=== PATIENT | female | born 1955 | race African-American/Black ===

== ENCOUNTER 2016-10-13 11:20 | Emergency (ER) | payer OTHER ==
[~2016-10-13] VITALS: Ht 172.7 cm; Wt 75.0 kg
[2016-10-13 11:22] VITALS: BP 178/99; PULSE 61; RESP 15; TEMP 97.8; O2SAT 98
[2016-10-13 12:25] LABS: AUTOMATED NEUTROPHIL # 1.7 TH/MM3 (1.8-7.7); BASOPHIL % 0.5 % (0.0-2.0); EOSINOPHIL # 0.1 TH/MM3 (0-0.4); EOSINOPHIL % 1.5 % (0.0-4.0); HEMO FLAGS DIFF FINAL; LYMPH % 55.9 % (9.0-44.0); LYMPHOCYTE # 2.6 TH/MM3 (1.0-4.8); MEAN CELL VOLUME 92.5 FL (80.0-100.0); MEAN CORPUSCULAR HEMOGLOBIN 31.5 PG (27.0-34.0); MONO % 5.9 % (0.0-8.0); NEUT % 36.2 % (16.0-70.0); PLATELET COUNT 115 TH/MM3 (150-450); RED BLOOD COUNT 4.32 MIL/MM3 (4.00-5.30); RED CELL DISTRIBUTION WIDTH 15.5 % (11.6-17.2); WHITE BLOOD COUNT 4.6 TH/MM3 (4.0-11.0)
--- NOTE | 2016-10-13 12:32 | PD ---
HPI Chief Complaint: Numbness/Tingling Time Seen by Provider: 11:32 Travel History International Travel<30 days: No Contact w/Intl Traveler<30days: No Traveled to known affect area: No History of Present Illness HPI Patient is a 61-year-old female with history of HIV who presents the emergency department with complaint of tingling. Patient states that she has a tingling sensation over her low abdomen, this is not painful but she does have a slight pressure associated with it. This radiates throughout the body, goes down into the legs with a tingling type sensation in her feet. This does go into the back , arms. Patient states she is otherwise been well recently, eating and drinking of well, no nausea vomiting or diarrhea. She denies any urinary symptoms. She is taking antiretrovirals, but does not know her last CD4 count. No recent fevers, chills but she does complain of body aches diffusely. She traveled recently to [place] to see her father, but no sick contacts. PFSH Past Medical History Autoimmune Disease: Yes (hiv+) Immune Disorder: Yes (HIV+) Menopausal: Yes Past Surgical History Hysterectomy: Yes Social History Alcohol Use: No Tobacco Use: Yes (pack a day) Substance Use: No Allergies-Medications (Allergen,Severity, Reaction): Coded Allergies: No Known Allergies (Unverified , 10/13/16) Reported Meds & Prescriptions Reported Meds & Active Scripts Active Reported Truvada (Emtricitabine-Tenofovir Disoproxil Fumarate) 200-300 Mg Tab 1 Tab PO DAILY Norvir (Ritonavir) 100 Mg Cap 600 Mg PO DAILY [Rezolsta] DAILY Review of Systems Except as stated in HPI: all other systems reviewed are Neg Physical Exam Narrative GENERAL: Well-appearing female in no acute distress SKIN: Focused skin assessment warm/dry. HEAD: Normocephalic. EYES: No scleral icterus. No injection or drainage. ENT: Mucous membranes pink and moist. NECK: Supple CARDIOVASCULAR: Regular rate and rhythm. No murmur appreciated. RESPIRATORY: No accessory muscle use. Clear to auscultation. Breath sounds equal bilaterally. GASTROINTESTINAL: Abdomen soft, non-tender, nondistended. MUSCULOSKELETAL: No obvious deformities. No edema. Sensation grossly intact. Upper and lower show many reflexes intact. Motor movement normal. NEUROLOGICAL: Awake and alert. Motor grossly within normal limits. Normal speech. PSYCHIATRIC: Appropriate mood and affect; insight and judgment normal. Data Data Last Documented VS Vital Signs Date Time Temp Pulse Resp B/P Pulse Ox O2 Delivery O2 Flow Rate FiO2 10/13/16 11:22 97.8 61 15 178/99 98 Orders Basic Metabolic Panel (Bmp) (10/13/16 11:41) Complete Blood Count With Diff (10/13/16 11:41) Urinalysis - C+S If Indicated (10/13/16 11:41) Cath For Specimen (10/13/16 12:35) Labs Laboratory Tests Test 10/13/16 10/13/16 11:15 12:55 White Blood Count 4.6 TH/MM3 Red Blood Count 4.32 MIL/MM3 Hemoglobin 13.6 GM/DL Hematocrit 40.0 % Mean Corpuscular Volume 92.5 FL Mean Corpuscular Hemoglobin 31.5 PG Mean Corpuscular Hemoglobin 34.0 % Concent Red Cell Distribution Width 15.5 % Platelet Count 115 TH/MM3 Mean Platelet Volume 9.3 FL Neutrophils (%) (Auto) 36.2 % Lymphocytes (%) (Auto) 55.9 % Monocytes (%) (Auto) 5.9 % Eosinophils (%) (Auto) 1.5 % Basophils (%) (Auto) 0.5 % Neutrophils # (Auto) 1.7 TH/MM3 Lymphocytes # (Auto) 2.6 TH/MM3 Monocytes # (Auto) 0.3 TH/MM3 Eosinophils # (Auto) 0.1 TH/MM3 Basophils # (Auto) 0.0 TH/MM3 CBC Comment DIFF FINAL Differential Comment Sodium Level 139 MEQ/L Potassium Level 3.5 MEQ/L Chloride Level 108 MEQ/L Carbon Dioxide Level 23.6 MEQ/L Anion Gap 7 MEQ/L Blood Urea Nitrogen 15 MG/DL Creatinine 0.94 MG/DL Estimat Glomerular Filtration 73 ML/MIN Rate Random Glucose 88 MG/DL Calcium Level 9.0 MG/DL Urine Color YELLOW Urine Turbidity CLEAR Urine pH 7.0 Urine Specific Max 1.010 Urine Protein NEG mg/dL Urine Glucose (UA) NEG mg/dL Urine Ketones NEG mg/dL Urine Occult Blood NEG Urine Nitrite NEG Urine Bilirubin NEG Urine Urobilinogen LESS THAN 2.0 MG/DL Urine Leukocyte Esterase NEG Urine RBC 1 /hpf Urine WBC 1 /hpf Urine Squamous Epithelial 2 /hpf Cells Urine Bacteria RARE /hpf Urine Mucus FEW /lpf Urine Yeast (Budding) RARE Microscopic Urinalysis Comment CULT NOT INDICATED MDM Medical Decision Making Medical Screen Exam Complete: Yes Emergency Medical Condition: Yes Medical Record Reviewed: Yes Differential Diagnosis 61-year-old female HIV positive on antiretrovirals, unknown last CD4 count, with numbness and tingling throughout the entire body seems to emanate from the suprapubic region. Differential includes neuropathy, dehydration, electrolyte abnormality, UTI, medication side effect Narrative Course Unfortunately patient does not know the names of which antiretroviral she is taking, so unknown whether this could be a drug side effect. CBC, BMP, urinalysis obtained. Urinalysis shows bacteria, and knees. We'll treat with fluconazole, Keflex for home. Diagnosis Primary Impression: UTI (urinary tract infection) Qualified Code: N30.00 - Acute cystitis without hematuria Additional Impression: Yeast infection Referrals: Primary Care Physician call for appointment Additional Instructions: Finish antibiotics, yeast medication as prescribed. Follow-up with primary care provider if symptoms persist and return to the ER for the warning signs discussed. Med/Other Pt SpecificInfo: Prescription(s) given Scripts Fluconazole 150 Mg Opb151 Mg PO ONCE #1 TAB Ref 0 Prov:Fannie Dodd MD 10/13/16 Cephalexin (Keflex)500 Mg Vhn567 Mg PO Q8H 7 Days Ref 0 Prov:Fannie Dodd MD 10/13/16 Disposition: 01 DISCHARGE HOME Condition: Stable Fannie Dodd MD Oct 13, 2016 12:32
[2016-10-13] MEDS ORDERED: RITO100 PO (12:33)
[2016-10-13] MEDS ORDERED: EMTR1TAB PO (12:33)
[2016-10-13] MEDS ORDERED: DARUNAVIR (12:33)
[2016-10-13] MEDS ORDERED: COBICISTAT (12:33)
[2016-10-13 12:38] LABS: BICARBONATE 23.6 MEQ/L (21.0-32.0); POTASSIUM 3.5 MEQ/L (3.5-5.1)
[2016-10-13 13:16] LABS: BACTERIA, URINE RARE /hpf; BLOOD, URINE NEG (NEG); GLUCOSE,URINE NEG (NEG); KETONE, URINE NEG (NEG); MUCUS URINE FEW /lpf (OCC); NITRITE,URINE NEG (NEG); SQUAMOUS EPITHELIAL CELL URINE 2 /hpf (0-5); URINE COLOR YELLOW (YELLW/STRAW)
[2016-10-13 13:20] LABS: COMMENT (UR) CULT NOT INDICATED; CULTURE IF INDICATED CULT NOT INDICATED
[2016-10-13] MEDS ORDERED: CEPH-460 PO (13:27)
[2016-10-13] MEDS ORDERED: FLUC150T PO (13:27)
== END 2016-10-13 13:52 | disposition home or self-care (01) ==
LOC: NEPD 11:20
DX: N30.00 Acute cystitis without hematuria (principal); B37.9 Candidiasis, unspecified; Z21 Asymptomatic human immunodeficiency virus [HIV] infection status
CPT/HCPCS: 80048; 81001; 85025; 99284

== ENCOUNTER 2017-06-18 16:55 | Emergency (ER) | payer OTHER ==
[~2017-06-18] VITALS: Ht 172.7 cm; Wt 73.6 kg
[~2017-06-18 16:55] MED LIST: CEPH-460 PO; COBICISTAT; DARUNAVIR; FLUC150T PO; RITO100 PO; TRUV200300 PO
[2017-06-18 17:31] VITALS: BP 130/73; PULSE 73; RESP 20; TEMP 99.7; O2SAT 99
--- NOTE | 2017-06-18 18:25 | RADRPT ---
EXAM DATE/TIME: 06/18/2017 18:06 [facility] COMPARISON: No previous studies available for comparison. INDICATIONS : Fever and cough. MEDICAL HISTORY : None. SURGICAL HISTORY : None. ENCOUNTER: Initial ACUITY: 2 days PAIN SCORE: 0/10 LOCATION: Bilateral chest FINDINGS: PA and lateral views of the chest demonstrate the lungs to be symmetrically aerated without evidence of mass, infiltrate or effusion. The cardiomediastinal contours are unremarkable. There some degener ative change at the lower thoracic and upper lumbar spine. There is minimal anterior wedging of the s uperior aspect of L1. CONCLUSION: No acute cardiopulmonary process. Wan Herman MD on June 18, 2017 at 18:22 Board Certified Radiologist. This report was verified electronically.
[2017-06-18] MEDS ORDERED: [UNRECOGNIZED DRUG - OTHER] (18:44)
[2017-06-18] MEDS ORDERED: ZITHTAB PO (19:21)
--- NOTE | 2017-06-18 19:21 | PD ---
HPI Chief Complaint: Cold / Flu Symptoms Time Seen by Provider: 19:07 Travel History International Travel<30 days: No Contact w/Intl Traveler<30days: No Traveled to known affect area: No History of Present Illness HPI 61-year-old female complains of headache, coughing congestion, body ache and generalized malaise and fever. Patient states that his symptoms started 3 days ago. Patient states that she has mild aching headache. Patient denies any visual change. Patient denies earache or sore throat. Patient states that she has persistent productive cough. Patient states that she has poor appetite but no nausea vomiting. Patient states that she has occasional diarrhea. Patient denies any dysuria frequency. Patient has history of HIV positive and has been seen by physician in [place]. Last blood test done was in March. Patient does not know her CD4 count or viral load. PFSH Past Medical History Autoimmune Disease: Yes (hiv+) Immune Disorder: Yes (HIV+) Menopausal: Yes Past Surgical History Hysterectomy: Yes Social History Alcohol Use: No Tobacco Use: Yes (pack a day) Substance Use: No Allergies-Medications (Allergen,Severity, Reaction): Coded Allergies: No Known Allergies (Unverified , 10/13/16) Reported Meds & Prescriptions Reported Meds & Active Scripts Active Reported [jenava] 600 DAILY Review of Systems General / Constitutional: Positive: Fever Eyes: No: Visual changes HENT: Positive: Headaches Cardiovascular: No: Chest Pain or Discomfort Respiratory: Positive: Cough, No: Shortness of Breath Gastrointestinal: No: Abdominal Pain Genitourinary: No: Dysuria Musculoskeletal: No: Pain Skin: No Rash Neurologic: No: Weakness Psychiatric: No: Depression Endocrine: No: Polydipsia Hematologic/Lymphatic: No: Easy Bruising Physical Exam Narrative GENERAL: Well-nourished, well-developed patient. SKIN: Focused skin assessment warm/dry. HEAD: Normocephalic. EYES: No scleral icterus. No injection or drainage. NECK: Supple, trachea midline. No JVD or lymphadenopathy. CARDIOVASCULAR: Regular rate and rhythm without murmurs, gallops, or rubs. RESPIRATORY: Breath sounds equal bilaterally. No accessory muscle use. GASTROINTESTINAL: Abdomen soft, non-tender, nondistended. MUSCULOSKELETAL: No cyanosis, or edema. BACK: Nontender without obvious deformity. No CVA tenderness. Neurologic exam normal. Data Data Last Documented VS Vital Signs Date Time Temp Pulse Resp B/P (MAP) Pulse Ox O2 Delivery O2 Flow Rate FiO2 06/18/17 17:31 99.7 73 20 130/73 (92) 99 Orders Orders Influenzae A/B Antigen (06/18/17 17:34) Chest, Pa & Lat (06/18/17 ) MDM Medical Decision Making Medical Screen Exam Complete: Yes Emergency Medical Condition: Yes Interpretation(s) 1917 p.m. Chest x-ray shows no acute process. Influenza AB antigen negative. Differential Diagnosis Differential diagnosis including viral syndrome, bronchitis, pneumonia. Narrative Course 61-year-old female with headache, coughing congestion, body ache and fever. Patient has history of HIV positive. Diagnosis Primary Impression: Bronchitis Additional Impression: Viral syndrome Patient Instructions: General Instructions Additional Instructions: Z-Tip as directed. Tylenol for fever aching pain. [id number] cough medication as needed. Follow-up with personal physician. Return if persistent problem or worse. Med/Other Pt SpecificInfo: Prescription(s) given Scripts Azithromycin (Zithromax Z-Tip) 250 Mg Dspk 250 MG PO DIRECTED for Infection, #1 DSPK 0 Refills 500 MG (2 tabs) day 1, then 1 tab days 2-5. Prov: Marv Vail MD 06/18/17 Disposition: 01 DISCHARGE HOME Condition: Stable Marv Vail MD Jun 18, 2017 19:21
== END 2017-06-18 19:36 | disposition home or self-care (01) ==
LOC: NED 16:55 → NEPD 19:36
DX: J20.8 Acute bronchitis due to other specified organisms (principal); R51 Headache; R19.7 Diarrhea, unspecified; F17.200 Nicotine dependence, unspecified, uncomplicated; Z21 Asymptomatic human immunodeficiency virus [HIV] infection status
CPT/HCPCS: 71046; 87804; 99284

== ENCOUNTER 2018-03-08 17:16 | Observation (INO) ==
[2018-03-08 18:16] LABS: Baso % (Auto) 0.5 % (0.0-2.0); Eos # (Auto) 0.1 th/mm3 (0.0-0.4); Eos % (Auto) 1.9 % (0.0-4.0); Hematocrit 34.4 % (35.0-46.0); Hemoglobin 12.3 gm/dL (11.6-15.3); Lymph # (Auto) 2.3 th/mm3 (1.0-4.8); Lymph % (Auto) 45.7 % (9.0-44.0); Mean Corpuscular HGB Conc 35.8 % (32.0-36.0); Mean Corpuscular Volume 92.2 fL (80.0-100.0); Mean Platelet Volume 9.6 fL (7.0-11.0); Mono # (Auto) 0.4 th/mm3 (0.0-0.9); Neut # (Auto) 2.2 th/mm3 (1.8-7.7); Neut % (Auto) 43.9 % (16.0-70.0); Platelet Count 93 th/mm3 (150-450); Red Blood Count 3.74 mil/mm3 (4.00-5.30); Red Cell Distribution Width 15.4 % (11.6-17.2); White Blood Count 5.1 th/mm3 (4.0-11.0)
--- NOTE | 2018-03-08 18:18 | ED ---
HPI General Chief complaint: Respiratory Symptoms Stated complaint: respiratory Time Seen by Provider: 03/08/18 17:46 Source: patient Mode of arrival: ambulatory Limitations: no limitations History of Present Illness HPI narrative: 62-year-old female patient with history of HIV, presents to the ER today because she is having shortness of breath that she states has been going on since November. 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 She reports that it got worse today and that is why she is here. She has been coughing but she has not noticed any phlegm production. She also reports chest discomfort which she states is 8 out of 10. She denies any fevers or other issues. Modifying Factors: None Associated Signs & Symptoms: Several months of worsening shortness of breath, chest discomfort, coughing Risk Factors: HIV Related Data Home Medications Medication Instructions Recorded Confirmed lplcsuy-khb-fhjke-tenof alafen 1 tab PO DAILY 03/08/18 03/08/18 [Genvoya] Allergies Allergy/AdvReac Type Severity Reaction Status Date / Time No Known Allergies Allergy Verified 03/08/18 17:26 Review of Systems ROS: all other systems reviewed are negative [facility] Medical History Medical History HIV positive (Acute) Surgical History Surgical History No history of previous surgery (Acute) Social History Social History Substance History: Past History Second Hand Smoke Exposure: Yes Smoking Status: Current every day smoker Tobacco Type: Cigarettes How Often Do You Have a Drink Containing Alcohol: Never Recent Travel in [place] within the Last 8 Weeks: No Recent Out of Country Travel within the Last 8 Weeks: No Immunization History Tetanus Immunization: >5 Years Exam Narrative Exam Narrative: GENERAL: Well-developed elderly -[place] female patient currently in mild distress. Awake and oriented x3. SKIN: Focused skin assessment warm/dry. HEAD: Atraumatic. Normocephalic. EYES: Pupils equal and round. No scleral icterus. No injection or drainage. ENT: No nasal bleeding or discharge. Mucous membranes pink and moist. NECK: Trachea midline. No JVD. CARDIOVASCULAR: Regular rate and rhythm. No murmur appreciated. RESPIRATORY: Mild accessory muscle use. Clear to auscultation. Breath sounds equal bilaterally. GASTROINTESTINAL: Abdomen soft, non-tender, nondistended. Hepatic and splenic margins not palpable. MUSCULOSKELETAL: No obvious deformities. No clubbing. No cyanosis. No edema. NEUROLOGICAL: Awake and alert. No obvious cranial nerve deficits. Motor grossly within normal limits. Normal speech. PSYCHIATRIC: Appropriate mood and affect; insight and judgment normal. Course Reevaluation(s) Reevaluation #1: juan/emiliana rosen md , can admit to chest pain center Hemodynamically stable with no signs of pneumonia sepsis or acute airway compromise Diagnostic tests reviewed Time: 21:07 Initial Documented Vital Signs Temperature 97.6 F 03/08/18 17:24 Pulse Rate 85 03/08/18 17:24 Respiratory Rate 22 03/08/18 17:24 Blood Pressure 167/108 H 03/08/18 17:24 Pulse Oximetry 100 03/08/18 17:24 Last Documented Vital Signs Temperature 97.6 F 03/08/18 17:24 Pulse Rate 80 03/08/18 17:34 Respiratory Rate 24 03/08/18 17:34 Blood Pressure 171/97 H 03/08/18 17:34 Pulse Oximetry 96 03/08/18 17:57 Sign Out Sign Out Data: Patient Sign Out occurred on 03/08/18 at 18:59. Patient's care was discussed, and care was transferred from Shahid Oneal MD to Deandre Santiago DO. Sign Out Comment: Lab work shows mildly elevated d-dimer, considering her history and complaints, CTA was ordered for the patient for further evaluation. BNP is also pending. Case is discussed with oncoming physician at 7 workup. Disposition based on findings of CTA. Last updated by Shahid Oneal MD at 03/08/18 18:47 Medical Decision Making MDM Narrative Medical Screen Exam Complete: Yes Emergency Medical Condition: Yes Lab Data Result diagrams: 03/08/18 18:05 03/08/18 18:05 Lab Results 03/08/18 03/08/18 03/08/18 Range/Units 18:05 18:05 18:05 WBC 5.1 (4.0-11.0) th/mm3 RBC 3.74 L (4.00-5.30) mil/mm3 Hgb 12.3 (11.6-15.3) gm/dL Hct 34.4 L (35.0-46.0) % MCV 92.2 (80.0-100.0) fL MCH 33.0 (27.0-34.0) pg MCHC 35.8 (32.0-36.0) % RDW 15.4 (11.6-17.2) % Plt Count 93 L (150-450) th/mm3 MPV 9.6 (7.0-11.0) fL Prelim Diff (Auto) Slide review pending Neut % (Auto) 43.9 (16.0-70.0) % Lymph % (Auto) 45.7 H (9.0-44.0) % Burt % (Auto) 8.0 (0.0-8.0) % Eos % (Auto) 1.9 (0.0-4.0) % Baso % (Auto) 0.5 (0.0-2.0) % Neut # (Auto) 2.2 (1.8-7.7) th/mm3 Lymph # (Auto) 2.3 (1.0-4.8) th/mm3 Burt # (Auto) 0.4 (0.0-0.9) th/mm3 Eos # (Auto) 0.1 (0.0-0.4) th/mm3 Baso # (Auto) 0.0 (0.0-0.2) th/mm3 WBC Differential . Diff Scan Auto diff confirmed Differential Comment . D-Dimer Quant (PE/DVT) (0.00-0.50) mg/L FEU Sodium 142 (136-145) meq/L Potassium 4.6 (3.5-5.1) meq/L Chloride 112 H (98-107) meq/L Carbon Dioxide 25.2 (21.0-32.0) meq/L Anion Gap 5 (5-15) meq/L BUN 26 H (7-18) mg/dL Creatinine 1.55 H (0.50-1.00) mg/dL Estimated GFR 41 L (>89) mL/min Random Glucose 125 H (74-106) mg/dL Calcium 8.3 L (8.5-10.1) mg/dL Total Bilirubin 0.4 (0.2-1.0) mg/dL AST 47 H (15-37) U/L ALT 54 H (10-53) U/L Alkaline Phosphatase 90 (45-117) U/L Lactate Dehydrogenase 197 (84-246) U/L Troponin I 0.03 (0.02-0.05) ng/mL B-Natriuretic Peptide (0-100) pg/mL Total Protein 7.6 (6.4-8.2) g/dL Albumin 3.2 L (3.4-5.0) g/dL 03/08/18 03/08/18 Range/Units 18:05 18:05 WBC (4.0-11.0) th/mm3 RBC (4.00-5.30) mil/mm3 Hgb (11.6-15.3) gm/dL Hct (35.0-46.0) % MCV (80.0-100.0) fL MCH (27.0-34.0) pg MCHC (32.0-36.0) % RDW (11.6-17.2) % Plt Count (150-450) th/mm3 MPV (7.0-11.0) fL Prelim Diff (Auto) Neut % (Auto) (16.0-70.0) % Lymph % (Auto) (9.0-44.0) % Burt % (Auto) (0.0-8.0) % Eos % (Auto) (0.0-4.0) % Baso % (Auto) (0.0-2.0) % Neut # (Auto) (1.8-7.7) th/mm3 Lymph # (Auto) (1.0-4.8) th/mm3 Burt # (Auto) (0.0-0.9) th/mm3 Eos # (Auto) (0.0-0.4) th/mm3 Baso # (Auto) (0.0-0.2) th/mm3 WBC Differential Diff Scan Differential Comment D-Dimer Quant (PE/DVT) 0.59 H (0.00-0.50) mg/L FEU Sodium (136-145) meq/L Potassium (3.5-5.1) meq/L Chloride (98-107) meq/L Carbon Dioxide (21.0-32.0) meq/L Anion Gap (5-15) meq/L BUN (7-18) mg/dL Creatinine (0.50-1.00) mg/dL Estimated GFR (>89) mL/min Random Glucose (74-106) mg/dL Calcium (8.5-10.1) mg/dL Total Bilirubin (0.2-1.0) mg/dL AST (15-37) U/L ALT (10-53) U/L Alkaline Phosphatase (45-117) U/L Lactate Dehydrogenase (84-246) U/L Troponin I (0.02-0.05) ng/mL B-Natriuretic Peptide 1493 H (0-100) pg/mL Total Protein (6.4-8.2) g/dL Albumin (3.4-5.0) g/dL Imaging Data Radiologist's impression: Chest X-Ray 03/08/18 17:47 CONCLUSION: No acute cardiopulmonary disease. Chest CTA 03/08/18 18:45 CONCLUSION: Slight left lung base atelectasis and/or infiltrate is seen and scarring in the lungs without evidence for PE. Discharge Plan Discharge Disposition Patient Disposition: ED Admit(ED Internal Use Only) Discharge Condition Condition: Stable Discharge Details Diagnosis: Chest pain Physicians Team ED Provider: Deandre Santiago Primary Care Provider: UNKNOWN, Other Providers: [facility],Insurance Rxs /Orders / Referrals /Forms Prescriptions: No Action fpzqbsd-[id number]-itqie-tenof alafen [Genvoya] [id number] mg Tablet 1 tab PO DAILY RF: 0 Discharge Interventions Interventions: Vital Signs Last Done: 03/08/18 17:34 Status ED Status: With Doctor
--- NOTE | 2018-03-08 18:33 | XR ---
EXAM DATE: 03/08/2018 6:16 PM EST AGE/SEX: 62 years / Female INDICATIONS: Shortness of breath. CLINICAL DATA: This is the patient's initial encounter. Patient reports that signs and symptoms have been present for 1 day and indicates a pain score of 0/10. MEDICAL/SURGICAL HISTORY: None. None. COMPARISON: [facility], CHEST PA & LAT, 06/18/2017. . FINDINGS: The lungs are clear without infiltrate, nodule, or mass. There is no appreciable pleural effusion for technique. Heart and mediastinum are unremarkable. CONCLUSION: No acute cardiopulmonary disease. Electronically signed by: Shannan Fallon MD Board Certified Radiologist 03/08/2018 6:32 PM EST
[2018-03-08 18:38] LABS: Alanine Aminotransferase 54 U/L (10-53); Albumin 3.2 g/dL (3.4-5.0); Anion Gap 5 meq/L (5-15); Aspartate Aminotransferase 47 U/L (15-37); Blood Urea Nitrogen 26 mg/dL (7-18); Calcium 8.3 mg/dL (8.5-10.1); Carbon Dioxide 25.2 meq/L (21.0-32.0); Chloride 112 meq/L (98-107); Glomerular Filtration Rate 41 mL/min (>89); Glucose,Random 125 mg/dL (74-106); Potassium 4.6 meq/L (3.5-5.1); Sodium 142 meq/L (136-145)
[2018-03-08 18:41] LABS: Alkaline Phosphatase 90 U/L (45-117); Total Protein 7.6 g/dL (6.4-8.2); Troponin I 0.03 ng/mL (0.02-0.05)
--- NOTE | 2018-03-08 19:10 | CT ---
EXAM DATE: 03/08/2018 7:04 PM EST AGE/SEX: 62 years / Female INDICATIONS: Shortness of breath for two weeks. CLINICAL DATA: This is the patient's initial encounter. Patient reports that signs and symptoms have been present for 1 day and indicates a pain score of 0/10. MEDICAL/SURGICAL HISTORY: HIV. None. RADIATION DOSE: 8.26 CTDI (mGy) COMPARISON: No prior exams available for comparison. TECHNIQUE: Volumetric scanning was performed using a multi-row detector CT scanner during bolus infu jameel of 70 ml Omnipaque 350 (iohexol) nonionic water-soluble contrast as a single exam dose. The carlitos a was post processed with a variety of visualization algorithms including full volume maximum intensi ty projection and sliding thin slab reformation. Using automated exposure control and adjustment of the mA and/or kV according to patient size, radiation dose was kept as low as reasonably achievable t o obtain optimal diagnostic quality images. DICOM format image data is available electronically for review and comparison. FINDINGS: Slight left lung base atelectasis and/or infiltrate is seen. There is slight scarring in bilateral apices of the lungs. There is no evidence of PE for technique. There is no pleural effusion. No appreciable pathologica l adenopathy is seen within the mediastinum. CONCLUSION: Slight left lung base atelectasis and/or infiltrate is seen and scarring in the lungs wi thout evidence for PE. Electronically signed by: Shannan Fallon MD Board Certified Radiologist 03/08/2018 7:09 PM EST
[2018-03-08 22:00] LABS: Troponin I 0.04 ng/mL (0.02-0.05)
[2018-03-08] MEDS: Sod Chloride 0.9% Inj 1,000 ML IV.CONT SCH (22:04)
[2018-03-09 01:07] LABS: Troponin I 0.04 ng/mL (0.02-0.05)
[2018-03-09 01:43] VITALS: RESP 18
[2018-03-09] MEDS ORDERED: amLODIPine 5 MG Tablet PO ONE (09:00)
[2018-03-09] MEDS: Sod Chloride 0.9% Inj 1,000 ML IV.CONT SCH (09:07)
--- NOTE | 2018-03-09 09:41 | P.HPCA ---
History of Present Illness Primary Care Physician: UNKNOWN Dr. West for her HIV and Dr. Naidu [facility] for medical care Chief Complaint: Shortness of breath and a cough History of Present Illness: 62-year-old black female with a history of HIV since about 2002. She is followed by Dr. West and has apparently been fairly stable. Thanksgiving night when she went to bed she noticed that she was having considerable difficulty with shortness of breath and a mild cough. This shortness of breath and cough has persisted since then and is described as almost constant shortness of breath although it does fluctuate some. The cough has also been persistent wet but she produces very little sputum. What she does is generally white. She is also had 2 episodes of chills but cannot recall any fever. The shortness of breath and cough are so bad that she has difficulty sleeping at night. She discussed this with her physician Dr. Naidu and was scheduled for evaluation at [facility] which she believed was a chest x-ray and some further testing. (Emergency room note that she was scheduled to see a coding director is not correct). She reports no chest pain or discomfort to me until specifically asked at which time she indicates that she may have some slight discomfort which is described as sort of vague tightness in her chest associated with shortness of breath and coughing. She continues to smoke a pack a day plus. She denies any other ongoing symptoms or issues at this time. - Diagnosis (1) SOB (shortness of breath) (2) Pneumonia (3) COPD (chronic obstructive pulmonary disease) (4) Tobacco abuse (5) HIV (human immunodeficiency virus infection) (6) Chest pain Review of Systems All other systems reviewed negative except as stated in [facility]PI [facility] - History History Provided By: Patient - Medical / Surgical Hx Neg / Unobtainable Surgical History: No Previous Surgery - Medical History Medical History: Medical History (Last Reviewed 03/08/18 @ 18:17 by Shahid Oneal MD) HIV positive - Surgical History Surgical History: Surgical History (Last Reviewed 03/08/18 @ 18:17 by Shahid Oneal MD) No history of previous surgery - Tobacco History Second Hand Smoke Exposure: Yes Tobacco Use In Past 30 Days: Yes Smoking Status: Current every day smoker Tobacco Type: Cigarettes - Alcohol History How Often Do You Have a Drink Containing Alcohol: Never - Substance Use History Substance History: No History of Abuse - Travel History Recent Travel in the [place] Within the Last 8 Weeks: No Recent Travel Out of the Country Within the Last 8 Weeks: No - Immunization History Tetanus Immunization: >5 Years Hx Influenza Vaccine This Season: Yes Medications and Allergies Active Medications: Active Medications Sodium Chloride (Ns Inj) 1,000 mls @ 100 mls/hr IV.CONT .Q10H [facility] Last Admin: 03/09/18 09:07 Dose: 100 mls/hr Non-Formulary: Genvoya [id number] 10mg Tablet 0 tab PO DAILY [facility] Sodium Chloride (Ns Flush) 2 ml IV.FLUSH PRN PRN PRN Reason: FLUSH AFTER USING IV ACCESS Sodium Chloride (Ns Flush) 2 ml IV.FLUSH BID [facility] Last Admin: 03/09/18 09:09 Dose: Not Given Allergies Allergy/AdvReac Type Severity Reaction Status Date / Time No Known Allergies Allergy Verified 03/08/18 17:26 Home Medications Medication Instructions Recorded Confirmed Type gkxkyah-naz-lqrao-tenof alafen 1 tab PO DAILY 03/08/18 03/08/18 History [Genvoya] Exam Vital signs: Vital Signs 03/08/18 17:24 03/08/18 17:34 03/08/18 17:57 Temperature 97.6 F Pulse Rate 85 80 Respiratory Rate 22 24 Blood Pressure 167/108 H 171/97 H Pulse Oximetry 100 96 96 03/08/18 21:21 03/09/18 01:42 03/09/18 08:00 Temperature 97.6 F 97.1 F L Pulse Rate 78 81 78 Respiratory Rate 20 18 18 Blood Pressure 179/108 H 141/86 H 168/110 H Pulse Oximetry 97 95 98 03/09/18 08:20 Temperature Pulse Rate Respiratory Rate Blood Pressure Pulse Oximetry 98 Intake & Output 03/08/18 03/09/18 03/09/18 18:59 06:59 18:59 Intake Total 1000 / 1000 Balance 1000 / 1000 Weight 72.575 kg 69.9 kg Intake: IV 1000 / 1000 NS Inj 1,000 ML @ 100 mls/hr IV 1000 / 1000 .CONT .Q10H [facility] Rx#:[id number] Other: # Voids 1 Weight On Admission 69.9 kg Narrative: Well-nourished well-developed woman resting comfortably Skin warm dry Head normocephalic/atraumatic close cut hair Eyes PERRLA EOMI sclera clear Mouth mucous membranes moist and well papillated no lesions but an upper palate torus is noted Neck supple no JVD masses nodes or bruits Chest diffusely diminished breath sounds with rales over the left posterior base and intermittent rhonchi associated with coughing predominantly on the left side but bilateral Cardiovascular the rhythm is regular no gallops rubs or murmurs are noted Abdomen obese soft nontender no guarding or rebound no masses are palpated Extremities no clubbing cyanosis or edema pulses are intact Neurologic cranial nerves are intact exclusive of olfactory gait and balance which were not tested. Motor is 5+ and equal upper and lower extremities. Psychologic the patient appears to have reasonably good judgment affect and mood seem appropriate Results 03/08/18 18:05 03/08/18 18:05 Cardiac Enzymes 03/08/18 03/08/18 03/08/18 Range/Units 18:05 18:05 18:05 AST 47 H (15-37) U/L Lactate Dehydrogenase 197 (84-246) U/L Troponin I 0.03 (0.02-0.05) ng/mL B-Natriuretic Peptide 1493 H (0-100) pg/mL 03/08/18 03/09/18 Range/Units 21:26 00:41 AST (15-37) U/L Lactate Dehydrogenase (84-246) U/L Troponin I 0.04 0.04 (0.02-0.05) ng/mL B-Natriuretic Peptide (0-100) pg/mL Coagulation 03/08/18 Range/Units 18:05 B-Natriuretic Peptide 1493 H (0-100) pg/mL CBC 03/08/18 Range/Units 18:05 WBC 5.1 (4.0-11.0) th/mm3 RBC 3.74 L (4.00-5.30) mil/mm3 Hgb 12.3 (11.6-15.3) gm/dL Hct 34.4 L (35.0-46.0) % Plt Count 93 L (150-450) th/mm3 Neut # (Auto) 2.2 (1.8-7.7) th/mm3 Lymph # (Auto) 2.3 (1.0-4.8) th/mm3 [place] # (Auto) 0.4 (0.0-0.9) th/mm3 Eos # (Auto) 0.1 (0.0-0.4) th/mm3 Baso # (Auto) 0.0 (0.0-0.2) th/mm3 Comprehensive Metabolic Panel 03/08/18 Range/Units 18:05 Sodium 142 (136-145) meq/L Potassium 4.6 (3.5-5.1) meq/L Chloride 112 H (98-107) meq/L Carbon Dioxide 25.2 (21.0-32.0) meq/L BUN 26 H (7-18) mg/dL Creatinine 1.55 H (0.50-1.00) mg/dL Calcium 8.3 L (8.5-10.1) mg/dL AST 47 H (15-37) U/L ALT 54 H (10-53) U/L Alkaline Phosphatase 90 (45-117) U/L Total Protein 7.6 (6.4-8.2) g/dL Albumin 3.2 L (3.4-5.0) g/dL Intake and Output 03/08/18 03/09/18 03/09/18 22:59 06:59 14:59 Intake Total 1000 / 1000 Balance 1000 / 1000 Intake: IV 1000 / 1000 NS Inj 1,000 ML @ 100 mls/hr IV 1000 / 1000 .CONT .Q10H [facility] Rx#:[id number] Other: # Voids 1 Weight 72.575 kg 69.9 kg Weight On Admission 69.9 kg - Imaging and Cardiology Imaging: Impressions Chest X-Ray 03/08/18 17:47 CONCLUSION: No acute cardiopulmonary disease. Chest CTA 03/08/18 18:45 CONCLUSION: Slight left lung base atelectasis and/or infiltrate is seen and scarring in the lungs without evidence for PE. EKG interpretations - EKG EKG results cardiology: interpreted by PALMIRA Campos VTE Risk Assessment Caprini VTE Risk Assessment: No/Low Risk (score <= 1) Caprini Risk Assessment Model: Point Value = 1 Point Value = 2 Point Value = 3 Point Value = 5 Age 41-60 Minor surgery BMI > 25 kg/m2 Swollen legs Varicose veins or History of unexplained or recurrent spontaneous Oral contraceptives or hormone replacement Sepsis (< 1 month) Serious lung disease, including pneumonia (< 1 month) Abnormal pulmonary function Acute myocardial infarction Congestive heart failure (< 1 month) History of inflammatory bowel disease Medical patient at bed rest Age 61-74 Arthroscopic surgery Major open surgery (> 45 min) Laparoscopic surgery (> 45 min) Malignancy Confined to bed (> 72 hours) Immobilizing plaster cast Central venous access Age >= 75 History of VTE Family history of VTE Factor V Leiden Prothrombin [id number] Lupus anticoagulant Anticardiolipin antibodies Elevated serum homocysteine Heparin-induced thrombocytopenia Other congenital or acquired thrombophilia Stroke (< 1 month) Elective arthroplasty Hip, pelvis, or leg fracture Acute spinal cord injury (< 1 month) Prophylaxis Regimen: Total Risk Factor Score Risk Level Prophylaxis Regimen 0-1 Low Early ambulation 2 Moderate Order ONE of the following: *Sequential Compression Device (SCD) *Heparin 5000 units SQ BID 3-4 Higher Order ONE of the following medications: *Heparin 5000 units SQ TID *Enoxaparin/Lovenox 40 mg SQ daily (WT < 150 kg, CrCl > 30 mL/min) *Enoxaparin/Lovenox 30 mg SQ daily (WT < 150 kg, CrCl > 10-29 mL/min) *Enoxaparin/Lovenox 30 mg SQ BID (WT < 150 kg, CrCl > 30 mL/min) AND/OR *Sequential Compression Device (SCD) 5 or more Highest Order ONE of the following medications: *Heparin 5000 units SQ TID (Preferred with Epidurals) *Enoxaparin/Lovenox 40 mg SQ daily (WT < 150 kg, CrCl > 30 mL/min) *Enoxaparin/Lovenox 30 mg SQ daily (WT < 150 kg, CrCl > 10-29 mL/min) *Enoxaparin/Lovenox 30 mg SQ BID (WT < 150 kg, CrCl > 30 mL/min) AND *Sequential Compression Device (SCD) Assessment and Plan - Assessment (1) SOB (shortness of breath) Code(s): R06.02 - Shortness of breath Status: Acute Plan: This patient quite apparently has emphysema secondary to long-term tobacco abuse. However, she appears to have a secondary infection both by clinical presentation, physical examination with rales at the left base, and a CTA showing a left base infiltrate. She had had some chills but no fever however she is a long-standing HIV-positive patient followed by Dr. West saw immune response is most likely impaired. She will be initiated on a course of antibiotics with instructions to follow-up with her primary care physicians both Dr. Naidu and Dr. West on Saturday. (2) Pneumonia Code(s): J18.9 - Pneumonia, unspecified organism Status: Acute Plan: Is noted with the shortness of breath above the patient will be treated for pneumonia and instructed to follow-up with her primary care physicians (3) COPD (chronic obstructive pulmonary disease) Code(s): J44.9 - Chronic obstructive pulmonary disease, unspecified Status: Acute Plan: Patient is unaware that she has COPD and is instructed to discuss further pulmonary function testing or possible pulmonary consult with her primary care physician. She is also instructed to stop cigarette smoking immediately. (4) Tobacco abuse Code(s): Z72.0 - Tobacco use Status: Acute Plan: Immediate cessation of tobacco use (5) HIV (human immunodeficiency virus infection) Code(s): B20 - Human immunodeficiency virus [HIV] disease Status: Acute Plan: To continue following with Dr. West (6) Chest pain Code(s): R07.9 - Chest pain, unspecified Status: Acute - Plan This patient's current mild vague chest discomfort that is associated with shortness of breath and coughing is clearly noncardiac. However, she does have EKG changes with no known history of coronary disease and this will require further evaluation. She is not a candidate for further inpatient testing at this time since she clearly could not perform an exercise stress test and nuclear scanning when she is suffering from an acute inflammatory disease on top of her emphysema would also not be appropriate until she is stabilized. She is therefore treated for her pneumonic process and referred back to Dr. Naidu with instructions that she should seek further cardiac evaluation on an outpatient basis. H&P: Quality - VTE Deep Vein Thrombosis/Pulmonary Embolism Present on Admission: No (6) Chest pain Qualifiers: Chest pain type: unspecified Qualified Code(s): R07.9 - Chest pain, unspecified
[2018-03-09] MEDS ORDERED: GENVOYA PO SCH (10:00)
--- NOTE | 2018-03-09 10:05 | P.PNCA ---
Subjective Interval history: 62-year-old lady with complicated history of long-standing HIV infection followed by Dr. West currently is apparently stable. Thanksgiving night she went to [facility] bed and noted that she was quite short of breath, felt some diffuse tightness in her chest, and had a cough. She is a pack plus a day smoker but apparently has not had a great deal of difficulty with her breathing prior to this time. Since that time she has had almost constant shortness of breath, a cough which is only intermittently productive of white sputum but has had 2 episodes of chills with no fever. During my examination she mentioned no chest pain or discomfort whatsoever until I specifically asked her and then she indicated that she has some vague tightness in her chest associated with the shortness of breath. She was seen by Dr. Naidu this last week and referred for further evaluation of her shortness of breath for testing at [place]. (Emergency room documentation that she was to be evaluated by a retort operator is not correct). At the time I saw the patient she had ruled out for ACS with standard protocol however she does have an abnormal EKG. She also has a CTA which shows an infiltrate in the left base. Medications and Allergies Active Medications: Active Medications Sodium Chloride (Ns Inj) 1,000 mls @ 100 mls/hr IV.CONT .Q10H COUNT [facility]CLUDES THE [facility] Last Admin: 03/09/18 09:07 Dose: 100 mls/hr Non-Formulary: Genvoya [id number] 10mg Tablet 0 tab PO DAILY COUNT [facility] Sodium Chloride (Ns Flush) 2 ml IV.FLUSH PRN PRN PRN Reason: FLUSH AFTER USING IV ACCESS Sodium Chloride (Ns Flush) 2 ml IV.FLUSH BID COUNT INCLUDES THE [facility] Last Admin: 03/09/18 09:09 Dose: Not Given Allergies Allergy/AdvReac Type Severity Reaction Status Date / Time No Known Allergies Allergy Verified 03/08/18 17:26 Home Medications Medication Instructions Recorded Confirmed Type jajkmgu-ouo-wgklf-tenof alafen 1 tab PO DAILY 03/08/18 03/08/18 History [Genvoya] Physical Exam Vital signs: Vital Signs 03/08/18 17:24 03/08/18 17:34 03/08/18 17:57 Temperature 97.6 F Pulse Rate 85 80 Respiratory Rate 22 24 Blood Pressure 167/108 H 171/97 H Pulse Oximetry 100 96 96 03/08/18 21:21 03/09/18 01:42 03/09/18 08:00 Temperature 97.6 F 97.1 F L Pulse Rate 78 81 78 Respiratory Rate 20 18 18 Blood Pressure 179/108 H 141/86 H 168/110 H Pulse Oximetry 97 95 98 03/09/18 08:20 Temperature Pulse Rate Respiratory Rate Blood Pressure Pulse Oximetry 98 Intake & Output 03/08/18 03/09/18 03/09/18 18:59 06:59 18:59 Intake Total 1000 / 1000 Balance 1000 / 1000 Weight 72.575 kg 69.9 kg Intake: IV 1000 / 1000 NS Inj 1,000 ML @ 100 mls/hr IV 1000 / 1000 .CONT .Q10H [facility] Rx#:[id number] Other: # Voids 1 Weight On Admission 69.9 kg Narrative: Well-nourished well-developed woman resting comfortably at the time of my exam Head normocephalic atraumatic with close cut hair Eyes PERRLA EOMI sclera clear Mouth mucous membranes moist tongue well papillated no lesions, torus palatini noted Neck supple no JVD, no masses nodes or bruits Chest diffusely diminished breath sounds with some coarse rhonchi bilaterally with coughing. She also has a rales over the left posterior lung base. Cardiovascular the rhythm is regular there are no gallops rubs or murmurs Abdomen soft nontender no guarding or rebound no hepatosplenomegaly is appreciated and no masses are felt Extremities no clubbing cyanosis or edema, pulses are good. Some abnormal growth of the left great toenail is noted Neurologic cranial nerves are intact (olfactory gait and balance are not tested ) and motor is 5+ and equal upper and lower extremities Psychiatric affect and mood appear to be normal memory reasonably good Results 03/08/18 18:05 03/08/18 18:05 Cardiac Enzymes 03/08/18 03/08/18 03/08/18 Range/Units 18:05 18:05 18:05 AST 47 H (15-37) U/L Lactate Dehydrogenase 197 (84-246) U/L Troponin I 0.03 (0.02-0.05) ng/mL B-Natriuretic Peptide 1493 H (0-100) pg/mL 03/08/18 03/09/18 Range/Units 21:26 00:41 AST (15-37) U/L Lactate Dehydrogenase (84-246) U/L Troponin I 0.04 0.04 (0.02-0.05) ng/mL B-Natriuretic Peptide (0-100) pg/mL Coagulation 03/08/18 Range/Units 18:05 B-Natriuretic Peptide 1493 H (0-100) pg/mL CBC 03/08/18 Range/Units 18:05 WBC 5.1 (4.0-11.0) th/mm3 RBC 3.74 L (4.00-5.30) mil/mm3 Hgb 12.3 (11.6-15.3) gm/dL Hct 34.4 L (35.0-46.0) % Plt Count 93 L (150-450) th/mm3 Neut # (Auto) 2.2 (1.8-7.7) th/mm3 Lymph # (Auto) 2.3 (1.0-4.8) th/mm3 [place] # (Auto) 0.4 (0.0-0.9) th/mm3 Eos # (Auto) 0.1 (0.0-0.4) th/mm3 Baso # (Auto) 0.0 (0.0-0.2) th/mm3 Comprehensive Metabolic Panel 03/08/18 Range/Units 18:05 Sodium 142 (136-145) meq/L Potassium 4.6 (3.5-5.1) meq/L Chloride 112 H (98-107) meq/L Carbon Dioxide 25.2 (21.0-32.0) meq/L BUN 26 H (7-18) mg/dL Creatinine 1.55 H (0.50-1.00) mg/dL Calcium 8.3 L (8.5-10.1) mg/dL AST 47 H (15-37) U/L ALT 54 H (10-53) U/L Alkaline Phosphatase 90 (45-117) U/L Total Protein 7.6 (6.4-8.2) g/dL Albumin 3.2 L (3.4-5.0) g/dL Intake and Output 03/08/18 03/09/18 03/09/18 22:59 06:59 14:59 Intake Total 1000 / 1000 Balance 1000 / 1000 Intake: IV 1000 / 1000 NS Inj 1,000 ML @ 100 mls/hr IV 1000 / 1000 .CONT .Q10H COUNT INCLUDES THE [facility] Rx#:[id number] Other: # Voids 1 Weight 72.575 kg 69.9 kg Weight On Admission 69.9 kg - Imaging and Cardiology Imaging: Impressions Chest X-Ray 03/08/18 17:47 CONCLUSION: No acute cardiopulmonary disease. Chest CTA 03/08/18 18:45 CONCLUSION: Slight left lung base atelectasis and/or infiltrate is seen and scarring in the lungs without evidence for PE. Assessment and Plan - Assessment (1) SOB (shortness of breath) Code(s): R06.02 - Shortness of breath Status: Acute Plan: This patient quite apparently has emphysema secondary to long-term tobacco abuse. However, she appears to have a secondary infection both by clinical presentation, physical examination with rales at the left base, and a CTA showing a left base infiltrate. She had had some chills but no fever however she is a long-standing HIV-positive patient followed by Dr. West saw immune response is most likely impaired. She will be initiated on a course of antibiotics with instructions to follow-up with her primary care physicians both Dr. Naidu and Dr. West on Saturday. (2) Pneumonia Code(s): J18.9 - Pneumonia, unspecified organism Status: Acute Plan: Is noted with the shortness of breath above the patient will be treated for pneumonia and instructed to follow-up with her primary care physicians (3) COPD (chronic obstructive pulmonary disease) Code(s): J44.9 - Chronic obstructive pulmonary disease, unspecified Status: Acute Plan: Patient is unaware that she has COPD and is instructed to discuss further pulmonary function testing or possible pulmonary consult with her primary care physician. She is also instructed to stop cigarette smoking immediately. (4) Tobacco abuse Code(s): Z72.0 - Tobacco use Status: Acute Plan: Immediate cessation of tobacco use (5) HIV (human immunodeficiency virus infection) Code(s): B20 - Human immunodeficiency virus [HIV] disease Status: Acute Plan: To continue following with Dr. West (6) Chest pain Code(s): R07.9 - Chest pain, unspecified Status: Acute - Plan This patient's current mild vague chest discomfort that is associated with shortness of breath and coughing is clearly noncardiac. However, she does have EKG changes with no known history of coronary disease and this will require further evaluation. She is not a candidate for further inpatient testing at this time since she clearly could not perform an exercise stress test and nuclear scanning when she is suffering from an acute inflammatory disease on top of her emphysema would also not be appropriate until she is stabilized. She is therefore treated for her pneumonic process and referred back to Dr. Naidu with instructions that she should seek further cardiac evaluation on an outpatient basis. (6) Chest pain Qualifiers: Chest pain type: unspecified Qualified Code(s): R07.9 - Chest pain, unspecified
[2018-03-09 10:55] VITALS: BP 160/77; TEMP 97.8; O2SAT 95
[2018-03-09 11:41] VITALS: PULSE 78
--- NOTE | 2018-03-09 11:51 | ECG ---
Date Performed: 03/08/2018 Time Performed: 17:33:12 PTAGE: 62 years EKG: Sinus rhythm INTRAVENTRICULAR CONDUCTION DELAY Nonspecific ST-T changes ABNORMAL ECG NO PREVIOUS TRACING DOCTOR: Hunter Miller Interpretating Date/Time 03/09/2018 11:50:16
--- NOTE | 2018-03-09 14:50 | ECG ---
Date Performed: 03/09/2018 Time Performed: 00:50:05 PTAGE: 62 years EKG: Sinus rhythm INTRAVENTRICULAR CONDUCTION DELAY LEFT VENTRICULAR HYPERTROPHY AND ST-T CHANGE ABNORMAL ECG Cannot r ule out ischemia however essentially unchanged from prior tracing PREVIOUS TRACING : 03/08/2018 21.45 DOCTOR: Mir Ham Interpretating Date/Time 03/09/2018 14:49:49
--- NOTE | 2018-03-09 14:51 | ECG ---
Date Performed: 03/08/2018 Time Performed: 21:45:41 PTAGE: 62 years EKG: Sinus rhythm WITH OCCASIONAL VENTRICULAR PREMATURE COMPLEXES INTRAVENTRICULAR CONDUCTION DELAY LEFT VENTRICULAR H YPERTROPHY AND ST-T CHANGE POSSIBLE SEPTAL MYOCARDIAL INFARCTION ABNORMAL ECG No significant change PREVIOUS TRACING : 03/08/2018 17.33 DOCTOR: Mir Ham Interpretating Date/Time 03/09/2018 14:50:15
== END 2018-03-09 12:50 | disposition home or self-care (01) ==
LOC: NEDA 17:16 → NEPC 17:16 → NEDA 22:36 → NEPFCDU 03-09 01:32
PROVIDERS: ADMIT Internal Medicine Interventional Cardiology; ATTEND Internal Medicine Interventional Cardiology